=== PATIENT | female | born 1980 | race Caucasian/White ===

== ENCOUNTER 2017-05-31 07:28 | Emergency (ER) | payer OTHER ==
[~2017-05-31] VITALS: Ht 162.6 cm; Wt 59.0 kg
[2017-05-31] MEDS ORDERED: FORFIVO XL450 MG PO (07:48)
[2017-05-31] MEDS ORDERED: ZYRTEC10 M5 PO (07:48)
[2017-05-31] MEDS ORDERED: NORCO 5-325 TA1 EACH PO ×2 (08:02→10:38)
[2017-05-31] MEDS ORDERED: GENTAK5 ML INTRAOCULR (08:04)
[2017-05-31 08:48] VITALS: BP 103/73
== END 2017-05-31 08:48 | disposition home or self-care (01) ==
LOC: M.ERS 07:28
DX: S05.01XA Injury of conjunctiva and corneal abrasion without foreign body, right eye, initial encounter (principal); Z90.89 Acquired absence of other organs; Z88.5 Allergy status to narcotic agent; Z91.040 Latex allergy status; W22.8XXA Striking against or struck by other objects, initial encounter; Y93.89 Activity, other specified; Y92.89 Other specified places as the place of occurrence of the external cause; Y99.8 Other external cause status